=== PATIENT | male | born 1935 | race Caucasian/White ===

== ENCOUNTER → 2024-07-03 09:28 | Outpatient (REF) | payer OTHER, SELFPAY | LOC: RAD 09:28 | PROVIDERS: ATTENDING PHYSICIAN Internal Medicine Critical Care Medicine; FAMILY PHYSICIAN Family Medicine | DX: R06.89 Other abnormalities of breathing (principal) | CPT/HCPCS: 71250 ==

== ENCOUNTER → 2024-07-24 09:25 | Outpatient (REF) | payer OTHER, SELFPAY ==
[2024-07-24 10:22] LABS: % Basophils 0.6 % (0-2); % Eosinophils 2.8 % (0-6); % Immature Granulocytes 0.4 % (0-0.5); % Lymphocytes 22.1 % (20.5-51.1); % Monocytes 12.1 % (1.7-9.3); Absolute Eosinophils 0.2 10^3/uL (0-0.7); Absolute Lymphocytes 1.2 10^3/uL (1.2-3.4); Absolute Monocytes 0.7 10^3/uL (0.1-0.6); Absolute Neutrophils 3.3 10^3/uL (1.4-6.5); Hematocrit 35.7 % (39.0-52.0); Hemoglobin 12.3 g/dL (13.0-18.0); Mean Corp Hgb Conc. 34.5 g/dL (33.0-37.0); Mean Corpuscular Hgb 29.9 pg (27.0-31.0); Mean Corpuscular Volume 86.7 fL (80.0-94.0); Mean Platelet Volume 9.9 fL (7.4-10.4); Nucleated Red Blood Cells % 0 % (-); Platelet Count 260 10^3/uL (130-400); Red Blood Cell Count 4.12 10^6/uL (4.70-6.10); Red Cell Dist. Width 13.9 % (11.5-14.5); White Blood Cell Count 5.4 10^3/uL (4.8-10.8)
[2024-07-24 10:55] LABS: ALT (SGPT) 18 U/L (0-50); AST (SGOT) 25 U/L (17-59); Albumin 4.2 g/dl (3.5-5.0); Alkaline Phosphatase 102 U/L (38-126); Blood Urea Nitrogen 24 mg/dl (9-20); Calcium 9.5 mg/dl (8.4-10.2); Carbon Dioxide 23 mmol/L (22-30); Chloride 105 mmol/L (98-107); Glucose 127 mg/dl (70-99); HDL Cholesterol 39 mg/dl; LDL Cholesterol, Calculated 201 mg/dl; Potassium 4.9 mmol/L (3.5-5.1); Sodium 139 mmol/L (135-145); Total Bilirubin 0.5 mg/dl (0.2-1.3); Total Cholesterol 299 mg/dl (50-199); Total Protein 6.6 g/dl (6.3-8.2); Triglyceride 297 mg/dl (10-149); Very Low Density Lipoprotein 59 mg/dl (0-30); eGFR 48.34
== END ==
LOC: REG 09:25
PROVIDERS: ATTENDING PHYSICIAN Internal Medicine Cardiovascular Disease
DX: I25.10 Atherosclerotic heart disease of native coronary artery without angina pectoris (principal); I10 Essential (primary) hypertension; E78.00 Pure hypercholesterolemia, unspecified
CPT/HCPCS: 36415; 80053; 80061; 85025

== ENCOUNTER 2024-07-27 07:42 | Day surgery (SDC) | payer OTHER, SELFPAY ==
[2024-07-27] VITALS (16 sets, daily range): BP systolic 121–175; BP diastolic 59–93; BMI 27.8
[2024-07-27] MEDS: NSS 235 ML IV (09:38)
[2024-07-27] MEDS: LOW STRENGTH ASPIRIN 81 MG PO (09:46)
[2024-07-27 12:48] LABS: ACT-LR - POC 226 Seconds (116-155)
[2024-07-27 12:59] LABS: ACT-LR - POC 247 Seconds (116-155)
[2024-07-27 13:18] LABS: ACT-LR - POC 248 Seconds (116-155)
--- NOTE | 2024-07-27 14:40 | ITS.CL.CATH ---
Cement Block Maker - Catheterization
Cardiac Catheterization
Procedure Report:
LEFT HEART CATH AND CORONARY INTERVENTION
Date of Procedure: July 27, 2024
Referring: Dr. Shemar Hoff
PROCEDURES:
1. Left heart catheterization with coronary angiography
2. Hemodynamic assessment of LAD with a Cisco Verrata wire with the iFR serially measuring below the ischemic threshold at 0.83, 0.84, and 0.84. The right coronary artery is collateralized from the LAD which may worsen the iFR results
3. Successful stenting of proximal to mid LAD jailing the first diagonal branch with placement of a 3.0 x 30 mm Ider stent that was postdilated to high pressures with a 3.5 mm noncompliant balloon to 12 aram distally and 14-16 aram in the proximal
midportion of the stent
INDICATION: This is an 89-year-old gentleman with a past medical history notable for hypertension, anxiety, hyperlipidemia, and gout. He had been tried on atorvastatin in the past but experienced myalgias. He states that he is experienced
midepigastric discomfort at times and has been evaluated for GI and pulmonary etiology. He is currently maintained on dual antianginal medications chronically and continues to experience intermittent epigastric discomfort and exertional dyspnea for
which she is now referred for coronary angiography. His LDL cholesterol has been under 200 mg/dL. He has been fine on atorvastatin and ezetimibe which have caused symptoms of fatigue and muscle aches.
ACCESS: Right radial artery, 6 [place] sheath (note: Patient has a prominent vascular loop in the mid forearm which was successfully navigated and we are able to complete the procedure from the right radial approach. However, the patient did
experience discomfort in the right shoulder and bicep area for much of the procedure)
HEMODYNAMICS (mmHg):
AO (s/d, m) : 158/69
LV (s/d) : 154/4
LVEDP : 11
CORONARY FINDINGS
Dominance: Right
LEFT MAIN: Normal
LEFT ANTERIOR DESCENDING: The LAD arises normally from the left main and runs in the anterior interventricular groove. The proximal LAD has tandem 60% stenosis involving the origin of the first diagonal branch. The first diagonal branches a small
caliber vessel that has a stable 80% mid stenosis. The remainder of the LAD has luminal irregularities but no focal obstructive stenosis. Well-developed collaterals to the PDA are noted
CIRCUMFLEX: The circumflex is a medium caliber nondominant vessel. The first obtuse marginal branch is a small to medium caliber vessel with a 60-70% ostial/proximal stenosis. The mid circumflex extending into OM 2 has a 60% stenosis. The
stenotic segment is a Enciso 111 bifurcation class.
RIGHT CORONARY: The right coronary artery is a dominant vessel with a focal 80% proximal stenosis. The RCA is known to supply to RV marginal branches. The RCA tapers beyond the first RV marginal branch and becomes occluded at the second RV
marginal branch with the distal vessel noted to fill via left to right collaterals to the PDA and posterolateral branch
VENTRICULOGRAPHY: Not done
HEMODYNAMIC ASSESSMENT OF THE LAD WITH A VOLCANO OMNI WIRE: The origin of the left main was cannulated with a 6 Fr EBU 3.5 guide catheter. Intravenous heparin was administered and the ACT was followed during the procedure. Two hundred micrograms
of intracoronary nitroglycerin was given through the guide catheter. A New Screens Omni wire was advanced to the guide catheter tip and normalized to guide catheter pressure. The Omni wire was then carefully manipulated across the stenosis in the LAD
with the iFR serially measuring below the ischemic threshold at 0.83, 0.84, and 0.84.
ANGIOPLASTY PROCEDURE DETAIL: Upon review of the diagnostic catheterization films the decision was made to proceed with percutaneous revascularization of the LAD in the hopes that it would improve symptoms. Intravenous heparin was administered and
the ACT was monitored throughout the procedure. A 600 mg loading dose of clopidogrel was administered prior to the interventional procedure.
A BMW guidewire was advanced through the EBU 3.5 guiding catheter and across the proximal to mid LAD stenosis and into the distal vessel. Primary stenting was undertaken with placement of a 3.0 x 30 mm Ider stent that was implanted at nominal
pressures and postdilated with a 3.5 mm noncompliant balloon to nominal pressures distally and between 14 and 16 aram in the proximal and midportion of the stent.
RADIATION SUMMARY: Fluoro Time (min): 12.1, Dose (mGy): 683, DAP (Gy.cm2) : 56.4
CONCLUSIONS
1. Coronary artery disease involving the proximal to mid LAD which was successfully stented with placement of a 3.0 x 30 mm Ider stent. The right coronary artery is now noted to be 100% occluded with the distal vessel filling via [id number]
collaterals. The occluded segment in the RCA is just at the origin of a second RV marginal branch and the length of occlusion is uncertain. Given chronicity of symptoms I thought it would be better to treat the LAD stenosis and attempt to improve
symptoms.
RECOMMENDATIONS
1. Uninterrupted dual antiplatelet therapy for 6-12 months
2. Will add long-acting nitrate for further titration to see if anginal symptoms will improve
3. Continue oral beta-scott and amlodipine. Goal blood pressure less than 130/80
4. Last LDL cholesterol measured 200 mg/dL. Will start patient on rosuvastatin. He reports 'difficulty taking statins' in the past. However, there has been significant in the coronary artery disease and needs further risk modification as
tolerated
Copy to: Dr. Shemar Hoff
--- NOTE | 2024-07-27 15:15 | PTCARENOTE ---
Patient received from the brine room laborer. Right radial band intact. Patient stood from stretcher and walked a few steps into bed.
[2024-07-27] MEDS: PEPCID 20 MG PO (16:49)
[2024-07-27] MEDS: CRESTOR 20 MG PO (16:49)
[2024-07-27] MEDS: FLOMAX 0.4 MG PO (16:49)
--- NOTE | 2024-07-27 17:13 | PTCARENOTE ---
Patient comfortable, voided in the bathroom, TR band removed, lights dimmed call han reach
[2024-07-27] MEDS: NORVASC 5 MG PO (20:11)
[2024-07-27] MEDS: COREG 6.25 MG PO (20:11)
[2024-07-27] MEDS: APRESOLINE 10 MG PO (20:11)
[2024-07-27] MEDS: ULORIC 40 MG PO (20:41)
[2024-07-27] MEDS: MELATONIN 5 MG PO (22:03)
--- NOTE | 2024-07-27 23:06 | PTCARENOTE ---
Pt rec'd at change of shift awake,alert with right radial site DDI, no active bleeding or hematoma present-good radial pulse
Sinus with BB on telemetry. Pt requested Melatonin at HS-order obtained,dose given
[2024-07-28 01:48] VITALS: BP 149/70
[2024-07-28 03:09] LABS: Hematocrit 35.9 % (39.0-52.0); Hemoglobin 12.7 g/dL (13.0-18.0); Mean Corp Hgb Conc. 35.4 g/dL (33.0-37.0); Mean Corpuscular Hgb 30.1 pg (27.0-31.0); Mean Corpuscular Volume 85.1 fL (80.0-94.0); Platelet Count 263 10^3/uL (130-400); Red Blood Cell Count 4.22 10^6/uL (4.70-6.10); White Blood Cell Count 6.8 10^3/uL (4.8-10.8)
[2024-07-28 03:25] LABS: Blood Urea Nitrogen 25 mg/dl (9-20); Calcium 9.6 mg/dl (8.4-10.2); Carbon Dioxide 20 mmol/L (22-30); Chloride 103 mmol/L (98-107); Estimated Creatinine Clearance 35 ml/min; Glucose 118 mg/dl (70-99); HDL Cholesterol 37 mg/dl; LDL Cholesterol, Calculated 187 mg/dl; Potassium 4.8 mmol/L (3.5-5.1); Sodium 138 mmol/L (135-145); Total Cholesterol 288 mg/dl (50-199); Triglyceride 323 mg/dl (10-149); Very Low Density Lipoprotein 64 mg/dl (0-30); eGFR 52.84
[2024-07-28] MEDS: BENADRYL 25 MG PO (03:30)
--- NOTE | 2024-07-28 03:34 | PTCARENOTE ---
Pt with multitude of health complaints during the night including post nasal drip that was keeping him awake and upsetting his stomach,feelings of anxiety, temporary numbness in hands-resolved (hx b/l shoulder joint pain-pt usually sleeps on
stomach) and 'I can't breathe' little after mn but stated 'I feel better when your here'.
Pt medicated with Tylenol for shoulder discomfort and Benadryl for c/o constant post nasal drip. VS stable. Emotional support given.
--- NOTE | 2024-07-28 03:41 | DOWNTIME ---
There was a [employer] Client Horse Trekking Guide Downtime on 07/28/2024 from 0100 to 07/28/2024 at 0300. Downtime documentation of patient's care, including medication administrations, has been reconciled in the electronic record per guidelines. Refer to the
patient's paper chart under the miscellaneous tab to see printed paper medication records and downtime forms.
--- NOTE | 2024-07-28 05:37 | PTCARENOTE ---
Pt appears to be sleeping in bed at this time.call han within reach. Sinus braxton on telemetry.
[2024-07-28 07:47] VITALS: BP 118/67
[2024-07-28] MEDS: PROTONIX 40 MG PO (08:51)
[2024-07-28] MEDS: NORVASC 5 MG PO (08:51)
[2024-07-28] MEDS: LOW STRENGTH ASPIRIN 81 MG PO (08:51)
[2024-07-28] MEDS: COREG 6.25 MG PO (08:51)
[2024-07-28] MEDS: APRESOLINE 10 MG PO (08:51)
[2024-07-28] MEDS: PLAVIX 75 MG PO (08:51)
[2024-07-28] MEDS: IMDUR (EXTENDED RELEASE) 30 MG PO (08:51)
[2024-07-28] MEDS: COZAAR 25 MG PO (08:52)
--- NOTE | 2024-07-28 09:27 | W.PN.CARDCBS ---
Addendum entered and electronically signed by David Chong MD 07/28/24 13:53:
I saw and examined the patient.
The Loop Puller's note was reviewed and I agree with the note.
Comment:
GEN: No distress, awake, Ox3
HEENT: supple, anicteric, mmm
LUNGS: CTA, no wheezes/rales
CV: Reg, S1/S2, 1/6 syst LSB, no gallop
ABD: soft, BS+, NT/ND
EXT: No edema
NEURO: Gross non-focal
SKIN: No rash
Plan:
Doing well status post PCI of LAD. Will treat residual RCA medically for now.
Continue aspirin, Plavix, Coreg, Cozaar, Imdur and amlodipine.
Will try Crestor 20 mg daily and follow exam.
Okay for discharge
Original Note:
Today's Communication / Plan
-
Post PCI LAD, residual RCA with collaterals will treat medically
DAPT
trial of rosuvastatin
cardiac rehab
stable for d/c home
Impression / Plan
-
Primary care physician: Frank Romero MD
Primary credit support counselor: Shemar Hoff MD
89-year-old gentleman with a past medical history notable for hypertension, anxiety, hyperlipidemia, and gout. He had been tried on atorvastatin in the past but experienced myalgias. He states that he is experienced midepigastric discomfort at
times and has been evaluated for GI and pulmonary etiology. He is currently maintained on dual antianginal medications chronically and continues to experience intermittent epigastric discomfort and exertional dyspnea for which she is now referred
for coronary angiography. His LDL cholesterol has been under 200 mg/dL. He has been fine on atorvastatin and ezetimibe which have caused symptoms of fatigue and muscle aches
Impression:
CAD/Chest pain
post PCI LAD x1 MEGGAN 07/27/24
Residual RCA with L->R collaterals, med rx
Hyperlipidemia - stain intolerance
RJ
Gout
GERD
HTN
Long COVID syndrome
Takotsubo cardiomyopathy
Osteoarthritis
CKD 3b
Anxiety
Plan:
post PCI no cp, sob
Rad site stable
tele no sig ectopy
DAPT ASA/Plavix, will decrease ASA to 81mg daily
Will add Isosorbide 30mg for residual RCA disease
Stop omeprazole, switch to Protonix while on Plavix
His LDL 187 TG 323, he was at first refusing any statin therapy but after long discussion he is agreeable to give rosuvastatin a try
Cardiac rehab c/s
f/u DCA in 1 mo
stable for d/c home today
07/27/24 [facility]:
1. Left heart catheterization with coronary angiography
2. Hemodynamic assessment of LAD with a Tribzi Verrata wire with the iFR serially measuring below the ischemic threshold at 0.83, 0.84, and 0.84. The right coronary artery is collateralized from the LAD which may worsen the iFR results
3. Successful stenting of proximal to mid LAD jailing the first diagonal branch with placement of a 3.0 x 30 mm Guillermo stent that was postdilated to high pressures with a 3.5 mm noncompliant balloon to 12 aram distally and 14-16 aram in the proximal
midportion of the stent
Progress Note - Patient Care Assistant
Subjective
Date of Service: July 28, 2024
denies cp, sob
Objective
Labs:
07/28/24 02:02
07/28/24 02:02
Labs
Hgb 12.7 g/dL (13.0-18.0) L 07/28/24 02:02
Hct 35.9 % (39.0-52.0) L 07/28/24 02:02
Plt Count 263 10^3/uL (130-400) 07/28/24 02:02
Sodium 138 mmol/L (135-145) 07/28/24 02:02
Potassium 4.8 mmol/L (3.5-5.1) 07/28/24 02:02
BUN 25 mg/dl (9-20) H 07/28/24 02:02
Creatinine 1.3 mg/dL (0.7-1.3) 07/28/24 02:02
Glucose 118 mg/dl (70-99) H 07/28/24 02:02
Vital Signs and I&O:
Vital Signs
Temp Pulse Resp BP Pulse Ox
97.8 F 75 20 118/67 97
07/28/24 07:49 07/28/24 08:45 07/28/24 07:49 07/28/24 07:47 07/28/24 07:49
Vital Signs
Temp Pulse Resp BP Pulse Ox
97.8 F 75 20 118/67 97
07/28/24 07:49 07/28/24 08:45 07/28/24 07:49 07/28/24 07:47 07/28/24 07:49
Intake & Output
07/26/24 07/27/24 07/28/24 07/29/24
06:59 06:59 06:59 06:59
Intake Total 1280 / 1280
Balance 1280 / 1280
Physical Exam
Physical Exam
NAD< AOX3
S1, S2, RRR
CTAB, non labored, no wheeze
SNTND bsx4
R rad site c/d/i no HT, good pulse
[2024-07-28 11:44] VITALS: BP 120/73
--- NOTE | 2024-07-28 12:52 | CM ---
CM following for DC planning needs.
Met w/ patient at bedside to complete initial assessment.
Pt. resides w/ spouse in a private home. He is functionally indep. at baseline. [place] and is quite indep. caring for it.
Anticipated DC plan is for home, no needs.
--- NOTE | 2024-07-28 13:51 | W.DS.TRANS ---
DC Summary - Probation Supervisor
-
Discharge Instructions:
Discharge Diagnosis/Procedures Angioplasty and stent to Left Anterior
Descending artery
Diet Low Cholesterol
Driving Restrictions No driving for 24 hours
Other Services Cardiac Rehab
Instructions:
Stand-Alone Forms: DC Instructions- Cath/EP Lab
Changes to Home Medications: Yes
Discharge Medications:
DC Medications w/original date entered in [facility]
omega 5-ifg-rnr-fish oil 500 mg (200mg-300mg)-1,000 mg capsule 900 mg PO DAILY 04/21/20
clonazepam 0.5 mg tablet 0.5 mg PO Q8HPRN PRN anxiety ##0 05/09/20
hydrocodone 5 mg-acetaminophen 325 mg tablet 1 tab PO Q6HPRN PRN moderate-severe pain #30 tabs 05/09/20
carvedilol 6.25 mg tablet 6.25 mg PO BID #60 tabs 09/08/23
nitroglycerin 0.4 mg sublingual tablet 0.4 mg sublingual Q5-15M PRN chest pain #20 tabs 09/08/23
acetaminophen 325 mg capsule (Tylenol) 500 mg PO DAILYPRN PRN pain 07/27/24
amlodipine 5 mg tablet 5 mg PO 07/27/24
cholecalciferol (vitamin D3) 25 mcg (1,000 unit) capsule (Vitamin D3) 25 mcg PO DAILY 07/27/24
famotidine 20 mg tablet 20 mg PO QPM 07/27/24
febuxostat 40 mg tablet 40 mg PO QPM Gout 07/27/24
hydralazine 10 mg tablet 10 mg PO BID 07/27/24
losartan 25 mg tablet 25 mg PO DAILY 07/27/24
melatonin 5 mg tablet 5 mg PO HS PRN sleep 07/27/24
multivitamin 1 tab PO DAILY 07/27/24
tamsulosin 0.4 mg capsule 0.4 mg PO QPM 07/27/24
turmeric 400 mg capsule 400 mg PO DAILY 07/27/24
aspirin 81 mg chewable tablet 81 mg PO DAILY #0 tabs 07/28/24
clopidogrel 75 mg tablet 75 mg PO DAILY #90 tabs 07/28/24
isosorbide mononitrate 30 mg tablet,extended release 24 hr 30 mg PO DAILY #30 tabs 07/28/24
pantoprazole 40 mg tablet,delayed release 40 mg PO DAILY #90 tabs 07/28/24
rosuvastatin 20 mg tablet 20 mg PO QPM #30 tabs 07/28/24
Home Medication Changes
new to rosuvastatin, protonix, isosorbide, plavix, aspirin decreased to daily from bid
Pending Results: No
--- NOTE | 2024-07-28 13:56 | PTCARENOTE ---
Patient discharged to home. IV and tele removed. Discharge teaching completed, patient verbalized understanding
== END 2024-07-28 14:52 | disposition home or self-care (01) ==
LOC: CATH 07:42
PROVIDERS: Nurse Practitioner; ATTENDING PHYSICIAN Internal Medicine Interventional Cardiology; FAMILY PHYSICIAN Family Medicine; OTHER PHYSICIAN Internal Medicine Cardiovascular Disease
DX: I25.119 Atherosclerotic heart disease of native coronary artery with unspecified angina pectoris (principal); E78.5 Hyperlipidemia, unspecified; R06.09 Other forms of dyspnea; G47.33 Obstructive sleep apnea (adult) (pediatric); M10.9 Gout, unspecified; K21.9 Gastro-esophageal reflux disease without esophagitis; Z79.02 Long term (current) use of antithrombotics/antiplatelets; Z79.82 Long term (current) use of aspirin; I45.10 Unspecified right bundle-branch block; I49.8 Other specified cardiac arrhythmias; I44.0 Atrioventricular block, first degree; I12.9 Hypertensive chronic kidney disease with stage 1 through stage 4 chronic kidney disease, or unspecified chronic kidney disease; N18.30 Chronic kidney disease, stage 3 unspecified; M19.90 Unspecified osteoarthritis, unspecified site; I51.81 Takotsubo syndrome
CPT/HCPCS: 93799; 80048; 80061; 85027; 85347; 93005; 93458; C1725; C1769; C1874; C1894; C9600; Q9967

== ENCOUNTER 2024-08-30 11:46 | Outpatient (RCR) | payer OTHER, SELFPAY | END 2024-09-08 23:59 | disposition home or self-care (01) | LOC: CRHB 11:46 | PROVIDERS: ATTENDING PHYSICIAN Internal Medicine Cardiovascular Disease | DX: I25.10 Atherosclerotic heart disease of native coronary artery without angina pectoris (principal); Z95.5 Presence of coronary angioplasty implant and graft | CPT/HCPCS: G0422; G0423 ==

== ENCOUNTER 2024-09-25 04:22 | Emergency (ER) | payer OTHER, SELFPAY ==
[2024-09-25 04:25] VITALS: BP 176/97
[2024-09-25 04:36] VITALS: BP 183/74
[2024-09-25 04:40] VITALS: BMI 27.6
[2024-09-25 05:01] LABS: % Basophils 0.5 % (0-2); % Immature Granulocytes 0.5 % (0-0.5); % Lymphocytes 23.6 % (20.5-51.1); % Monocytes 12.5 % (1.7-9.3); % Neutrophils 60.9 % (42.2-75.2); Absolute Eosinophils 0.1 10^3/uL (0-0.7); Absolute Lymphocytes 1.4 10^3/uL (1.2-3.4); Absolute Monocytes 0.7 10^3/uL (0.1-0.6); Absolute Neutrophils 3.6 10^3/uL (1.4-6.5); Hematocrit 41.3 % (39.0-52.0); Hemoglobin 13.7 g/dL (13.0-18.0); Mean Corp Hgb Conc. 33.2 g/dL (33.0-37.0); Mean Corpuscular Hgb 30.6 pg (27.0-31.0); Mean Corpuscular Volume 92.2 fL (80.0-94.0); Mean Platelet Volume 9.5 fL (7.4-10.4); Nucleated Red Blood Cells % 0 % (-); Platelet Count 234 10^3/uL (130-400); Red Blood Cell Count 4.48 10^6/uL (4.70-6.10); Red Cell Dist. Width 13.9 % (11.5-14.5); White Blood Cell Count 5.9 10^3/uL (4.8-10.8)
[2024-09-25 05:10] VITALS: BP 162/88
[2024-09-25 05:15] LABS: ALT (SGPT) 20 U/L (0-50); AST (SGOT) 22 U/L (17-59); Albumin 4.8 g/dl (3.5-5.0); Alkaline Phosphatase 102 U/L (38-126); Blood Urea Nitrogen 34 mg/dl (9-20); Calcium 9.7 mg/dl (8.4-10.2); Carbon Dioxide 24 mmol/L (22-30); Chloride 103 mmol/L (98-107); Estimated Creatinine Clearance 26 ml/min; Glucose 133 mg/dl (70-99); Potassium 4.6 mmol/L (3.5-5.1); Sodium 143 mmol/L (135-145); Total Bilirubin 0.3 mg/dl (0.2-1.3); Total Protein 7.5 g/dl (6.3-8.2); eGFR 33.51
[2024-09-25 05:27] LABS: Troponin I < 0.012 ng/ml
--- NOTE | 2024-09-25 06:14 | ED.GENMED ---
History of Present Illness
General
Chief Complaint: Blood Pressure Problem
Source: patient and family (Son who is at bedside)
Exam Limitations: none
Time Seen by Provider: 09/25/24 05:14
Nursing documentation reviewed up to this point in time: agreed with except (Patient had not fallen asleep yet. Was getting ready for bed when symptoms began with brief episode of dizziness, diaphoresis and concern for elevated blood pressure that
persisted.)
History of Present Illness
History of Present Illness:
This is an 89-year-old gentleman with longstanding history of hypertension, hyperlipidemia, anxiety, gout as well as CAD. More recently has been suffering with long COVID symptoms with dyspnea on exertion, chest pain with exertion, acid reflux and
has been following with cardiology as well as GI and doper. He underwent cardiac catheterization with PTCA to the proximal to mid LAD July 27 of this year. Since then he admits to no further chest discomfort with activity but
continues with intermittent dyspnea on exertion and continues to follow with cardiology as well as pulmonology, GI and PCP.
He does admit to moderate stress/anxiety admits to worry regarding overall not feeling well and is convinced all of his symptoms are related to COVID vaccination versus COVID URI.
He has been monitoring his blood pressure at least 5-6 times per day and has been concerned with uptrend in his blood pressure more recently over the past few days/week. He has been in touch with his durable medical equipment repairer, Dr. Shemar Hoff who recommended he
take his losartan at bedtime along with his second hydralazine at bedtime. He has been doing this over the past 2 nights and thus far has had no improvement in blood pressure at nighttime and tonight became concerned with his blood pressure was
elevated at 180 and remained elevated 1 hour after taking his nighttime dose of hydralazine and losartan. He has had no associated chest pain but does admit to feeling mildly dizzy, brief diaphoresis. He has had no headache, no weakness nor
numbness.
He has been prescribed temazepam as well as clonazepam for sleep and anxiety but admits to rarely taking this. He was unsure if he could take his temazepam along with losartan and hydralazine tonight. He believes he would not have presented to the
ED if he was able to take a temazepam and be able to sleep tonight.
Feeling improved since arrival to the ED.
Blood pressure improving to 162/88. Near patient's baseline.
Past History
Past History
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
ED Past Surgical History: Cardiac (Cardiac catheterization July 2013 revealing TAKOTSOBU CM; PTCA with stent to the LAD July 2024), Orthopedic (Left hip replacement Jund 2019) and Other (Left eye macular tear 2018, Cataracts surgery
April 2020 ( Limited vision))
Social History
Tobacco: Former smoker
Alcohol: None
Drug: None
Personal:
Living: with family
Employment: Retired
Family History
Family History: Hypertension
Phy Exam
Physical Exam
Physical Exam:
GENERAL: 89-year-old gentleman appears his stated age, awake and alert, pleasant, quite chatty and appears in no acute distress. Son is accompanying.
EYE: anicteric
NECK: Supple, nontender, no meningismus, no significant adenopathy. No JVD.
ENT: oral mucosa is moist. No rhinorrhea.
CARDIAC: Regular rate and rhythm. no murmur.
LUNGS: Clear breath sounds bilaterally, no acute respiratory distress, no wheezes/rales/rhonchi
ABDOMEN: Soft, nondistended, without focal tenderness,. normoactive BS.
NEUROLOGICAL: Alert and oriented x3, no focal neuro deficits. Gait is steady.
SKIN: Warm and dry, normal color, skin intact. No rash.
MUSCULOSKELETAL: No C/C/E. peripheral pulses are full and equal b/l. No palpable tenderness.
PSYCH: Mildly anxious. Easily communicative.
Course
Orders/Labs/Results
Orders:
Orders
09/25/24 04:28
EKG [Electrocardiogram (*1)] Urgent
Reason for Study: Palpitations
09/25/24 04:29
EKG- Treatment ONCE
09/25/24 04:40
Cardiac Monitoring- Treatment ONCE
IV Insert/Care/Rem.- Treatment PRN
09/25/24 04:51
Complete Blood Count/With Diff Urgent
Comprehensive Metabolic Panel Urgent
Troponin I Urgent
09/25/24 06:30
Troponin I Urgent
Abnormal Lab Results
09/25/24
04:51
RBC 4.48 L 10^6/uL
(4.70-6.10)
Absolute Monos (auto) 0.7 H 10^3/uL
(0.1-0.6)
Monocytes % 12.5 H %
(1.7-9.3)
BUN 34 H mg/dl
(9-20)
Creatinine 1.9 H mg/dL
(0.7-1.3)
Glucose 133 H mg/dl
(70-99)
09/25/24 04:51
09/25/24 04:51
Vital Signs
Initial and Last Documented VS:
Initial Vital Signs
Temp Pulse Resp BP Pulse Ox
98.2 F 74 18 176/97 98
09/25/24 04:25 09/25/24 04:25 09/25/24 04:25 09/25/24 04:25 09/25/24 04:25
Last Documented Vital Signs
Temp Pulse Resp BP Pulse Ox
98.2 F 80 16 175/81 96
09/25/24 04:25 09/25/24 06:30 09/25/24 04:37 09/25/24 06:30 09/25/24 06:30
MDM/Problems Addressed
Differential Diagnosis Includes:
Patient with history of hypertension presents with elevated blood pressure reading tonight accompanied with brief episode of diaphoresis, mild dizziness without chest pain nor shortness of breath. He does admit to a feeling of his heart skipping a
beat but denies a sense of racing heart.
Initial blood pressure 176/97, trended up to 183 but has now improved to 162/88. Upon review of records it appears patient's blood pressure generally runs 140s to 160s/170 systolic.
Concern for ACS, end-organ damage, arrhythmia, anxiety provoking hypertension.
EKG appears similar to previous.
Monitor shows normal sinus rhythm without ectopy.
Blood pressure improving.
Labs are pending.
Chronic conditions affecting care: HTN, CAD, Psychiatric illness and Kidney disease
*Pulse Oximetry
Patient hypoxic: no
*EKG
Interpreted by ED Provider?: Yes
Comparison EKG: no changes (Unchanged from previous July 28, 2024 save for T wave inversion anteriorly is somewhat more pronounced on today's EKG compared to July)
Rate: normal
Rhythm: sinus
Interval: first degree heart block
QRS Pattern: right bundle branch block
Ischemia: T-wave inversion
*Lab Rn Interpretation
Rate: normal
Interpretation: normal
Rhythm: sinus
*Critical Care Note
Total Time (30-74mins, 75-104mins- exclusive of procedures): Not Applicable
Update Note
Update Note:
Labs thus far unremarkable save for mild uptrend in creatinine, baseline 1.3-1.5, now 1.9. Patient admits to not drinking water during the day and more recently he has been drinking Pedialyte which is a fair amount of sodium. Troponin is negative.
Will plan to repeat troponin, continue monitoring engineer that shows normal sinus rhythm.
Encouraged to discontinue Pedialyte and instead drinking water. Continue strict low-sodium diet.
If troponin negative will plan to discharge to home with recommendations for prompt follow-up with his durable medical equipment repairer, Dr. Hoff for recheck.
Patient has also been encouraged to limit his blood pressure taking to only twice per day and record results. Follow-up with PCP/durable medical equipment repairer with results.
ED Attending Note
-
Portions of this chart may have been created with voice recognition software.� Occasional wrong word or��sound alike� substitutions may have occurred due to the inherent limitations of voice recognition software.
Discharge Plan
Departure
Condition: Good
Discharge Problem:
Accelerated essential hypertension
Instructions: High Blood Pressure (DC), Low-sodium diet
Prescriptions:
No Action
omega 2-kug-efr-fish oil 1 EACH capsule
900 mg PO DAILY
clonazepam 0.5 MG tablet
0.5 mg PO Q8HPRN PRN (Reason: anxiety) Qty: 0 0RF
hydrocodone-acetaminophen 1 TABLET tablet
1 tab PO Q6HPRN PRN (Reason: moderate-severe pain) Qty: 30 0RF
carvedilol 6.25 mg tablet
6.25 mg PO BID Qty: 60 0RF
nitroglycerin 0.4 mg tablet, sublingual
0.4 mg sublingual Q5-15M PRN (Reason: chest pain) Qty: 20 0RF
multivitamin Tablet
1 tab PO DAILY
hydralazine 10 mg Tablet
10 mg PO BID
Rx Instructions:
evening dose takes at HS
losartan 25 mg Tablet
25 mg PO HS
cholecalciferol (vitamin D3) [Vitamin D3] 25 mcg (1,000 unit) Capsule
25 mcg PO DAILY
acetaminophen [Tylenol] 325 mg Capsule
500 mg PO DAILYPRN PRN (Reason: pain)
febuxostat 40 mg Tablet
40 mg PO QPM
turmeric 400 mg Capsule
400 mg PO DAILY
amlodipine 5 mg Tablet
5 mg PO HS
famotidine 20 MG tablet
20 mg PO QPM
melatonin 5 mg Tablet
5 mg PO HS PRN (Reason: sleep)
Patient Comments:
takes as needed for sleep
isosorbide mononitrate 30 mg Tablet Extended Release 24 Hr
30 mg PO DAILY Qty: 30 3RF
clopidogrel 75 mg Tablet
75 mg PO DAILY Qty: 90 5RF
pantoprazole 40 mg Tablet,Delayed Release (Dr/Ec)
40 mg PO DAILY Qty: 90 5RF
rosuvastatin 20 mg Tablet
20 mg PO QPM Qty: 30 3RF
aspirin 81 mg Tablet,Chewable
81 mg PO DAILY Qty: 0 0RF
Repatha SureClick 140 mg/mL Pen Injector
140 mg SC Q2W
Referrals:
Frank Romero MD [Family Provider] - Call in 1-3 days for appt
Shemar Hoff MD [Active] - Call in 1-3 days for appt
Activity Restrictions/Additional Instructions:
Discontinue Pedialyte, this has a fair amount of sodium. Drinking water is best to hydrate.
Continue your current medications including current dosing schedule as recommended by Dr. Hoff.
Continue to monitor your blood pressure but only twice per day, record results and then put that cuff away.
If you are having difficulty sleeping you can take your temazepam at nighttime as needed for sleep. You can continue clonazepam as needed for anxiety.
Interventions
Interventions:
*Risk Screen - Suicide Last Done: 09/25/24 04:25
*General Assessment Last Done: 09/25/24 04:25
*Neglect/Abuse Screening Last Done: 09/25/24 04:25
ED- Fall Risk Assessment Last Done: 09/25/24 05:50
*ED COVID-19 Vaccine History Last Done: 09/25/24 05:50
ED- Cardiac Assessment Last Done: 09/25/24 05:50
ED- Neurological Assessment Last Done: 09/25/24 05:50
ED- Pulmonary Assessment Last Done: 09/25/24 05:50
Discharge Date and Time
Print Language: UPPER SORBIAN
[2024-09-25 06:30] VITALS: BP 175/81
[2024-09-25 07:39] LABS: Troponin I < 0.012 ng/ml
[2024-09-25 07:50] VITALS: BP 154/71
== END 2024-09-25 07:51 | disposition home or self-care (01) ==
LOC: EMR 04:22
PROVIDERS: EMERGENCY PHYSICIAN Emergency Medicine; FAMILY PHYSICIAN Family Medicine
DX: I10 Essential (primary) hypertension (principal); E78.00 Pure hypercholesterolemia, unspecified; I25.10 Atherosclerotic heart disease of native coronary artery without angina pectoris; I25.2 Old myocardial infarction; I42.9 Cardiomyopathy, unspecified; K21.9 Gastro-esophageal reflux disease without esophagitis; Z87.891 Personal history of nicotine dependence; Z95.5 Presence of coronary angioplasty implant and graft; Z79.899 Other long term (current) drug therapy
CPT/HCPCS: 99284; 80053; 84484; 85025; 93005

== ENCOUNTER → 2025-03-28 10:27 | Outpatient (REF) | payer OTHER, SELFPAY | LOC: HWRAD 10:27 | PROVIDERS: ATTENDING PHYSICIAN Physician Assistant Medical; FAMILY PHYSICIAN Family Medicine | DX: R09.89 Other specified symptoms and signs involving the circulatory and respiratory systems (principal) | CPT/HCPCS: 93880 ==

== ENCOUNTER → 2025-04-21 13:08 | Outpatient (REF) | payer OTHER, SELFPAY | LOC: PAVMRI 13:08 | PROVIDERS: ATTENDING PHYSICIAN Orthopaedic Surgery; FAMILY PHYSICIAN Family Medicine | DX: M54.16 Radiculopathy, lumbar region (principal) | CPT/HCPCS: 72148 ==

== ENCOUNTER → 2025-06-06 12:19 | Outpatient (REF) | payer OTHER, SELFPAY | LOC: PET 12:19 | PROVIDERS: ATTENDING PHYSICIAN Specialist | DX: C61 Malignant neoplasm of prostate (principal) | CPT/HCPCS: 78815 ==